=== PATIENT | female | born 1995 | race Caucasian/White ===

== ENCOUNTER 2017-03-01 19:15 | Emergency (ER) | payer BC, OTHER ==
[2017-03-01 19:23] VITALS: TEMP 99.1; BMI 21.2
[2017-03-01] MEDS ORDERED: SODIUM CHLORIDE 1,000 ML IV STA (19:23)
[2017-03-01] MEDS ORDERED: methylPREDNISolone NA SUCC 125 MG/2 ML VIAL IVPB ONE (19:23)
[2017-03-01] MEDS ORDERED: FAMOTIDINE 20 MG/50 ML IVPB 50 ML IVPB ONE (19:24)
--- NOTE | 2017-03-01 19:26 | PDOC ---
[id number] No Limitations - History of Present Illness Initial Comments: 03/01/17 19:26 The patient is a 21 year old female with no significant past medical history, who presents to the ED with an allergic reaction s/p eating almonds. Patient states 2 hours after eating almonds, her chin started swelling, her head became itchy, and she had nausea. She states she had 2 benadryl pills but with little to no alleviation. She denies chest pain, SOB, diarrhea, constipation. She denies difficulty swallowing. Known allergies: raspberries <Sanjiv Reyes - Last Filed: 03/01/17 20:31> <Milagro Allen - Last Filed: 03/04/17 02:53> - General Chief Complaint: Allergic Reaction Stated Complaint: ALLERGIC REACTION Time Seen by Provider: 03/01/17 19:19 Past History <Sanjiv Reyes - Last Filed: 03/01/17 20:31> - Psycho/Social/Smoking Cessation Hx Anxiety: Yes Suicidal Ideation: No Smoking History: Current some day smoker Have you smoked in the past 12 months: Yes 'Breaking Loose' booklet given: 01/14/15 Hx Alcohol Use: Yes (OCCAS.) Substance Use Type: None <Milagro Allen - Last Filed: 03/04/17 02:53> - Past Medical History Allergies/Adverse Reactions: Allergies Allergy/AdvReac Type Severity Reaction Status Date / Time No Known Allergies Allergy Verified 03/01/17 19:18 Home Medications: Ambulatory Orders Sertraline HCl [Zoloft] 100 mg PO DAILY 01/14/15 Methylprednisolone [Medrol Dose Otis] 4 mg PO ASDIR #21 tablet 03/01/17 Review of Systems - Review of Systems Able to Perform ROS?: Yes Comments:: 03/01/17 19:26 CONSTITUTIONAL: Absent: fever, chills, diaphoresis, generalized weakness, malaise, loss of appetite HEENT: Absent: rhinorrhea, nasal congestion, throat pain, throat swelling, difficulty swallowing, mouth swelling, ear pain, eye pain, visual Changes CARDIOVASCULAR: Absent: chest pain, syncope, palpitations, irregular heart rate, lightheadedness , peripheral edema RESPIRATORY: Absent: cough, shortness of breath, dyspnea with exertion, orthopnea, wheezing, stridor, hemoptysis GASTROINTESTINAL: Absent: abdominal pain, abdominal distension, nausea, vomiting, diarrhea, constipation, melena, hematochezia GENITOURINARY: Absent: dysuria, frequency, urgency, hesitancy, hematuria, flank pain, genital pain MUSCULOSKELETAL: Absent: myalgia, arthralgia, joint swelling SKIN: Present: itching to the head. swollen chin. HEMATOLOGIC/IMMUNOLOGIC: Absent: easy bleeding, easy bruising, lymphadenopathy, frequent infections ENDOCRINE: Absent: unexplained weight gain, unexplained weight loss, heat intolerance, cold intolerance NEUROLOGIC: Absent: headache, focal weakness or paresthesias, dizziness, unsteady gait, seizure, mental status changes, bladder or bowel incontinence PSYCHIATRIC: Absent: anxiety, depression, suicidal or homicidal ideation, hallucinations. <Sanjiv Reyes - Last Filed: 03/01/17 20:31> *Physical Exam - Vital Signs Last Vital Signs Temp Pulse Resp BP Pulse Ox 99.1 F 85 20 126/89 99 03/01/17 19:15 03/01/17 19:15 03/01/17 19:15 03/01/17 19:15 03/01/17 19:15 - Physical Exam Comments: 03/01/17 19:27 GENERAL: The patient is awake, alert, and fully oriented, in no acute distress. HEAD: Normal with no signs of trauma. EYES: Pupils equal, round and reactive to light, extraocular movements intact, sclera anicteric, conjunctiva clear with no pallor. ENT: Ears normal, nares patent, oropharynx clear without exudates. Moist mucous membranes. Left upper and lower lip edema, mild tongue edema, no uvular edema, NECK: Normal range of motion, supple without lymphadenopathy, JVD, or masses. LUNGS: Breath sounds equal, clear to auscultation bilaterally. No wheeze/ crackles. HEART: Regular rate and rhythm, normal S1 and S2 without murmur or rub. ABDOMEN: Soft/nontender/nondistended. BS wnl. No guarding or rebound. No palpable masses. No hepatosplenomegaly. EXTREMITIES: Normal range of motion, no edema. No clubbing or cyanosis. No cords , erythema, or tenderness. NEUROLOGICAL: Cranial nerves II through XII grossly intact. Normal speech, normal gait. PSYCH: Normal mood, normal affect. SKIN: Warm, Dry, scattered macular and papular erythematous rash of the torso and upper extremities. Upper face edema. <Sanjiv Reyes - Last Filed: 03/01/17 20:31> Medical Decision Making - Medical Decision Making The patient had excellent response to the medications given (Solu-Medrol/Pepcid/ Benadryl) with near resolution of upper lip edema and complete resolution of lower lip edema/tongue edema within an hour. As is protocol in patients with upper airway edema associated with ALLERGIC reaction, plan was to keep patient for observation for full 3 hours. However, patient was unwilling to stay for this period of time and signed out AGAINST MEDICAL ADVICE. <Milagro Allen - Last Filed: 03/04/17 02:53> *DC/Admit/Observation/Transfer - Attestations Scribe Attestion: 03/01/17 19:30 Documentation prepared by Sanjiv Reyes, acting as biomedical engineering professor for Milagro Allen MD. <Sanjiv Reyes - Last Filed: 03/01/17 20:31> <Milagro Allen - Last Filed: 03/04/17 02:53> Diagnosis at time of Disposition: Allergic reaction - Discharge Dispostion Disposition: AGAINST MEDICAL ADVICE Condition at time of disposition: Stable - Prescriptions Prescriptions: Methylprednisolone [Medrol Dose Otis] 4 mg PO ASDIR #21 tablet - Referrals Referrals: Ruby Sauceda [Non Staff, Medical] - - Patient Instructions Printed Discharge Instructions: DI for General Allergic Reactions Additional Instructions: return to ER immediately if you have recurrent lip/tongue swelling return to ER if you develop difficulty swallowing or breathing Benadryl as needed for itching Medrol dosepak taper starting tomorrow AM followup with assistant grocery(Dr Sauceda office) within 4-5 days
[2017-03-01 20:39] VITALS: BP 110/59; PULSE 78
== END 2017-03-01 21:40 | disposition left against medical advice (07) ==
LOC: FER 19:15
PROC: 3E033GC Introduction of Other Therapeutic Substance into Peripheral Vein, Percutaneous Approach (ICD-10-PCS; principal; 2017-03-01)
PROC: 3E0337Z Introduction of Electrolytic and Water Balance Substance into Peripheral Vein, Percutaneous Approach (ICD-10-PCS; 2017-03-01)
DX: T78.40XA Allergy, unspecified, initial encounter (principal); X58.XXXA Exposure to other specified factors, initial encounter; F17.210 Nicotine dependence, cigarettes, uncomplicated
CPT/HCPCS: 99283-25